=== PATIENT | male | born 1995 | race African-American/Black ===

== ENCOUNTER 2018-09-07 19:13 | Inpatient (IN) | payer SELFPAY ==
[~2018-09-07] VITALS: Ht 170.2 cm; Wt 68.2 kg
[2018-09-07 19:18] VITALS: Ht 170.2 cm; Wt 68.2 kg
[2018-09-07 22:01] VITALS: BP 139/75
[2018-09-07] MEDS ORDERED: HYDROCODON-ACE1 EAC7 PO (23:37)
[2018-09-07] MEDS ORDERED: DURICEF500 MG PO (23:37)
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
--- NOTE | 2018-09-09 08:11 | MORECARE ---
CASE MANAGEMENT DISCHARGE SUMMARY PATIENT: PONCE CAMARA UNIT: [id number] ADM DATE: 09/07/18 AGE: 23 : [birth year] SEX: M ROOM/BED: D.2224 AUTHOR: SIOBHAN SHAFER PHYSICIAN: REFERRING PHYSICIAN: GORAN SURESH DO DATE OF SERVICE: 09/09/18 Discharge Plan Patient Name: PONCE CAMARA [facility] [facility] 1995 Planned Disposition: Anticipated Discharge Date: Discharge Date: 09/08/2018 Expected LOS: 0 Initial Reviewer: [id number] Initial Review Date: 09/09/2018 Generated: 09/09/18 9:11 am Patient Name: PONCE CAMARA Page [id number] at 0811 All edits/amendments must be made on the electronic document DICTATION DATE: 09/09/18810 [employer]IST HELPER: ASHLEY 09/09/18810 RPT#: [id number] DC DATE:09/08/18 STATUS: DIS IN [facility] [address] [place] [address] END OF REPORT
== END 2018-09-08 01:05 | disposition home or self-care (01) | DRG 502 ==
LOC: D.ER 19:13 → D.MS 20:22 → D.ER 22:04 → D.MS 09-08 01:05
PROVIDERS: ADMIT Orthopaedic Surgery; ATTEND Orthopaedic Surgery
PROC: 0LQ60ZZ Repair Left Lower Arm and Wrist Tendon, Open Approach (ICD-10-PCS; principal; 2018-09-07 20:59)
DX: S56.522A Laceration of other extensor muscle, fascia and tendon at forearm level, left arm, initial encounter (principal); W26.0XXA Contact with knife, initial encounter

== ENCOUNTER 2018-10-14 08:05 | Emergency (ER) | payer SELFPAY ==
[~2018-10-14] VITALS: Ht 170.2 cm; Wt 68.2 kg
[~2018-10-14 08:05] MED LIST: DURICEF500 MG PO; HYDROCODON-ACE1 EAC7 PO
[2018-10-14 08:06] VITALS: Ht 170.2 cm; Wt 68.2 kg
--- NOTE | 2018-10-14 09:22 | NUR ---
The patient scores a moderate on the Suicide assessment. He is having a lot of thoughts to harm himself and he has a lot of anger. He says he last saw a counselor and was on medication in 2017. He says he would not do anything because he says he does not have the "balls" to do it. Due to his answers on the SI. screen and speaking to him further he will need to be placed on a 1:1 observation.
--- NOTE | 2018-10-14 09:51 | NUR ---
The patient rate moderate on the S.I., but he denies any intent to harm himself or otheres. He says he has his son and strong spiritual beliefs that will keep him from killing himself, but he did ask for someplace to go as an outpatient to get counseling and possibly medication. Gave him information on the [facility] transitions. Will also provide him with the Suicide Prevention Resources.
[2018-10-14] MEDS ORDERED: ACETAMINOPHEN500 M1 PO (10:41)
[2018-10-14] MEDS ORDERED: CYCLOBENZAPRINE10 MG PO (10:41)
[2018-10-14] MEDS ORDERED: AUGMENTIN 875-11 TAB PO (10:41)
[2018-10-14] MEDS ORDERED: IBUPROFEN800 MG PO (10:41)
[2018-10-14 11:11] VITALS: BP 140/97
== END 2018-10-14 10:50 | disposition home or self-care (01) ==
LOC: D.ER 08:05
DX: S61.011A Laceration without foreign body of right thumb without damage to nail, initial encounter (principal); Y04.2XXA Assault by strike against or bumped into by another person, initial encounter; Y93.89 Activity, other specified; Y92.89 Other specified places as the place of occurrence of the external cause